=== PATIENT | female | born 1950 | race Caucasian/White ===

== ENCOUNTER 2016-06-11 18:34 | Inpatient (IN) | payer MEDICARE, MEDICAID ==
[2016-06-11 18:37] VITALS: BP 228/100; PULSE 98; RESP 24; TEMP 98.7; O2SAT 97
--- NOTE | 2016-06-11 19:52 | PD ---
Physical Exam Time Seen by Provider: 19:51 Narrative 66yo F c/o bilateral pedal edema x few days. Hx of edema and takes a water pill. Denies fever, vomiting. VSS. Patient seen in triage. Awaiting bed placement. Data Data Last Documented VS Vital Signs Date Time Temp Pulse Resp B/P Pulse Ox O2 Delivery O2 Flow Rate FiO2 06/11/16 18:37 98.7 98 24 228/100 97 Room Air [facility] Supervised Visit with LISY: Karin Huff Jun 11, 2016 19:52
--- NOTE | 2016-06-11 20:48 | PD ---
HPI Chief Complaint: Edema Time Seen by Provider: 20:45 Travel History International Travel<30 days: No Contact w/Intl Traveler<30days: No Traveled to known affect area: No History of Present Illness HPI Patient is a 66-year-old female presents emergency department for evaluation bilateral pedal edema. Patient states she's been having pedal edema to her ankles for the past day and a half. Patient also does endorse some intermittent shortness of breath which preceded [place] She states since the flight today swelling has gotten worse in the right lower leg. She is on some "blood thinner" but she does not know which. Denies any fever denies any cough or congestion. She states this happened to her one time before and was told to shingles. Though she does not have a rash today. PFSH Past Medical History Narrative Medical Hypertension, CVA, Diabetes Cerebrovascular Accident: Yes Past Surgical History Narrative Surgical Hysterectomy Social History Tobacco Use: No Allergies-Medications (Allergen,Severity, Reaction): Coded Allergies: Tramadol (Verified Allergy, Unknown, ITCHING AND SWELLING, 06/11/16) Reported Meds & Prescriptions Reported Meds & Active Scripts Active Reported [Other Unk Meds] [Insulin] Plavix (Clopidogrel Bisulfate) 75 Mg Tab 75 Mg PO DAILY Gabapentin 300 Mg Cap 300 Mg PO TID Metoprolol Tartrate 25 Mg Tab 25 Mg PO BID Hydrochlorothiazide 25 Mg Tab 25 Mg PO BID Review of Systems Except as stated in HPI: all other systems reviewed are Neg Physical Exam Narrative GENERAL: Well-developed well-nourished no apparent distress. SKIN: Focused skin assessment warm/dry. No rash no lesion. HEAD: Atraumatic. Normocephalic. EYES: Pupils equal and round. No scleral icterus. No injection or drainage. ENT: No nasal bleeding or discharge. Mucous membranes pink and moist. NECK: Trachea midline. No JVD. CARDIOVASCULAR: Regular rate and rhythm. No murmur appreciated. RESPIRATORY: No accessory muscle use. Clear to auscultation. Breath sounds equal bilaterally. GASTROINTESTINAL: Abdomen soft, non-tender, nondistended. Hepatic and splenic margins not palpable. MUSCULOSKELETAL: No obvious deformities. No clubbing. No cyanosis. There is 2 + pitting edema to bilateral lower extremities. The left has edema to the foot and ankle and proximally to the mid tibia. The right is more pronounced and is present up into the knee. No cordlike structure felt, Homans sign negative.. NEUROLOGICAL: Awake and alert. No obvious cranial nerve deficits. Motor grossly within normal limits. Normal speech. PSYCHIATRIC: Appropriate mood and affect; insight and judgment normal. Data Data Last Documented VS Vital Signs Date Time Temp Pulse Resp B/P Pulse Ox O2 Delivery O2 Flow Rate FiO2 06/12/16 00:30 98 18 189/88 98 Room Air 06/11/16 18:37 98.7 Orders Electrocardiogram (06/11/16 21:02) B-Type Natriuretic Peptide (06/11/16 21:02) Ckmb (Isoenzyme) Profile (06/11/16 21:02) Complete Blood Count With Diff (06/11/16 21:) Comprehensive Metabolic Panel (06/11/16 21:) Magnesium (Mg) (06/11/16 21:02) Prothrombin Time / Inr (Pt) (06/11/16 21:) Act Partial Throm Time (Ptt) (06/11/16 21:02) Troponin I (06/11/16 21:02) Chest, Single Ap (06/11/16 21:02) Ecg Monitoring (06/11/16 21:02) Bilateral Bp Monitoring (06/11/16 21:) Iv Access Insert/Monitor (06/11/16 21:) Oximetry (06/11/16 21:02) Oxygen Administration (06/11/16 21:02) Sodium Chloride 0.9% Flush (Ns Flush) (06/11/16 21:15) Ct Pulmonary Angiogram (06/11/16 21:02) Us Leg Venous Doppler Bilat (06/11/16 21:02) CKMB (06/11/16 21:22) CKMB% (06/11/16 21:22) Ct Brain W/O Iv Contrast(Rout) (06/11/16 ) Nicardipine Inj (Cardene Inj) (06/11/16 23:15) Potassium Chlor 20 Meq Premix (Kcl 20 Me (06/11/16 23:15) Iohexol 350 Inj (Omnipaque 350 Inj) (06/11/16 23:56) Levofloxacin 750 Mg Premix Inj (Levaquin (06/12/16 00:30) Admit Order (Ed Use Only) (06/12/16 ) Labs Laboratory Tests Test 06/11/16 21:22 White Blood Count 7.4 TH/MM3 Red Blood Count 3.86 MIL/MM3 Hemoglobin 10.2 GM/DL Hematocrit 31.2 % Mean Corpuscular Volume 80.8 FL Mean Corpuscular Hemoglobin 26.4 PG Mean Corpuscular Hemoglobin 32.7 % Concent Red Cell Distribution Width 12.8 % Platelet Count 176 TH/MM3 Mean Platelet Volume 9.4 FL Neutrophils (%) (Auto) 66.7 % Lymphocytes (%) (Auto) 23.2 % Monocytes (%) (Auto) 7.8 % Eosinophils (%) (Auto) 1.9 % Basophils (%) (Auto) 0.4 % Neutrophils # (Auto) 4.9 TH/MM3 Lymphocytes # (Auto) 1.7 TH/MM3 Monocytes # (Auto) 0.6 TH/MM3 Eosinophils # (Auto) 0.1 TH/MM3 Basophils # (Auto) 0.0 TH/MM3 CBC Comment DIFF FINAL Differential Comment Prothrombin Time 10.3 SEC Prothromb Time International 0.9 RATIO Ratio Activated Partial 23.5 SEC Thromboplast Time Sodium Level 139 MEQ/L Potassium Level 2.9 MEQ/L Chloride Level 103 MEQ/L Carbon Dioxide Level 27.6 MEQ/L Anion Gap 8 MEQ/L Blood Urea Nitrogen 17 MG/DL Creatinine 1.22 MG/DL Estimat Glomerular Filtration 44 ML/MIN Rate Random Glucose 341 MG/DL Calcium Level 8.4 MG/DL Magnesium Level 1.7 MG/DL Total Bilirubin 0.4 MG/DL Aspartate Amino Transf 15 U/L (AST/SGOT) Alanine Aminotransferase 16 U/L (ALT/SGPT) Alkaline Phosphatase 128 U/L Total Creatine Kinase 533 U/L Creatine Kinase MB 4.7 NG/ML Creatine Kinase MB % 0.9 % Troponin I 0.06 NG/ML B-Type Natriuretic Peptide 225 PG/ML Total Protein 7.0 GM/DL Albumin 2.7 GM/DL [facility] Medical Decision Making Medical Screen Exam Complete: Yes Emergency Medical Condition: Yes Interpretation(s) EKG shows normal sinus rhythm with normal axis and normal R-wave progression. LDH. Q waves in lead 3 without any other inferior Q waves. No concerning ST T changes. Intervals are within normal limits. This is an abnormal EKG. Differential Diagnosis CHF, ACS, AMI, non-STEMI, hypertensive emergency, DVT, PE. Narrative Course Patient 66-year-old female presents to emergency department for evaluation of shortness of breath and leg swelling. Patient states his been feeling fatigued and short of breath for some time prior to her plane ride. She does have bilateral lower extremity leg swelling which is worse on the right. There are indications for PE as well as DVT studies both of which are negative for thrombosis/embolism. However there is a small pneumonia on CT of the chest per patient is been a symptomatically from it. She will be started on Levaquin. Patient's labs are notable for an elevation in her total CK to 500 as well as an elevation of troponin to 0.06. Given her blood pressure elevated to 220 systolic is indication to start on antihypertensives as is her presents hypertensive emergency. CT head was initially ordered as the patient seems somewhat altered but the patient family arrives and states because Irish is not her first language and she takes second of process it. She does not seem altered to them. Patient was discussed with Dr. Herrera for admission. Diagnosis Primary Impression: Hypertensive emergency Additional Impressions: Elevated troponin Pneumonia Qualified Code: J18.9 - Pneumonia due to infectious organism, unspecified laterality, unspecified part of lung Admitting Information Admitting Physician Requests: Admit Condition: Stable Isidoro Ramos MD Jun 11, 2016 20:48
[2016-06-11 21:04] VITALS: BP 228/106; PULSE 97; RESP 24; O2SAT 98
[2016-06-11] MEDS ORDERED: SODIUM CHLORIDE 0.9% FLUSH 10 ML FLUSH IVF PRN (21:15)
[2016-06-11] MEDS ORDERED: HYDR25TA5 PO (21:32)
[2016-06-11] MEDS ORDERED: METO25TA3 PO (21:32)
[2016-06-11] MEDS ORDERED: GABA300C5 PO (21:32)
[2016-06-11 21:42] LABS: AUTOMATED NEUTROPHIL # 4.9 TH/MM3 (1.8-7.7); BASOPHIL % 0.4 % (0.0-2.0); EOSINOPHIL # 0.1 TH/MM3 (0-0.4); EOSINOPHIL % 1.9 % (0.0-4.0); HEMATOCRIT 31.2 % (35.0-46.0); HEMO FLAGS DIFF FINAL; LYMPH % 23.2 % (9.0-44.0); LYMPHOCYTE # 1.7 TH/MM3 (1.0-4.8); MEAN CELL VOLUME 80.8 FL (80.0-100.0); MEAN CORPUSCULAR HEMOGLOBIN 26.4 PG (27.0-34.0); MEAN CORPUSCULAR HGB CONC 32.7 % (32.0-36.0); MONO % 7.8 % (0.0-8.0); NEUT % 66.7 % (16.0-70.0); PLATELET COUNT 176 TH/MM3 (150-450); RED BLOOD COUNT 3.86 MIL/MM3 (4.00-5.30); RED CELL DISTRIBUTION WIDTH 12.8 % (11.6-17.2); WHITE BLOOD COUNT 7.4 TH/MM3 (4.0-11.0)
--- NOTE | 2016-06-11 21:42 | RADRPT ---
EXAM DATE/TIME: 06/11/2016 21:18 [facility] COMPARISON: No previous studies available for comparison. INDICATIONS : Chest pain. MEDICAL HISTORY : None. SURGICAL HISTORY : None. ENCOUNTER: Initial ACUITY: 1 day PAIN SCORE: 0/10 LOCATION: Bilateral chest FINDINGS: A single AP erect portable view of the chest was obtained and demonstrate streaky perihilar and bibas al are interstitial opacities with no focal consolidation or effusion. The heart size is mildly enlar ged. There are one electrocardiogram leads. The bony thorax is intact. CONCLUSION: Streaky mild perihilar and by basilar interstitial opacities which could indicate pulmonary edema. Yang Flower MD on June 11, 2016 at 21:40 Board Certified Radiologist. This report was verified electronically.
[2016-06-11 21:53] LABS: APTT (PATIENT) 23.5 SEC (24.3-30.1); INTERNATIONAL NORMALIZED RATIO 0.9 RATIO; PROTHROMBIN TIME - PATIENT 10.3 SEC (9.8-11.6)
[2016-06-11 22:03] VITALS: BP 212/94; PULSE 94; RESP 22; O2SAT 98
[2016-06-11] MEDS ORDERED: PLAV75TA29 PO (22:05)
[2016-06-11 22:20] LABS: ALKALINE PHOSPHATASE 128 U/L (45-117); ALT (GPT) 16 U/L (10-53); ANION GAP 8 MEQ/L (5-15); AST (GOT) 15 U/L (15-37); BICARBONATE 27.6 MEQ/L (21.0-32.0); BLOOD UREA NITROGEN 17 MG/DL (7-18); CHLORIDE 103 MEQ/L (98-107); CREATINE KINASE 533 U/L (26-192); GLOMERULAR FILTRATION RATE 44 ML/MIN (>89); MAGNESIUM 1.7 MG/DL (1.5-2.5); SODIUM (NA) 139 MEQ/L (136-145); TOTAL BILIRUBIN ADULT 0.4 MG/DL (0.2-1.0)
--- NOTE | 2016-06-11 22:24 | RADRPT ---
EXAM DATE/TIME: 06/11/2016 21:51 [facility] COMPARISON: No previous studies available for comparison. INDICATIONS : Bilateral leg swelling. MEDICAL HISTORY : Hypertension. Cerebrovascular accident. Anticoagulant therapy, Plavix. Ovarian cancer. Diabetes. SURGICAL HISTORY : Hysterectomy. ENCOUNTER: Initial ACUITY: 2 weeks PAIN SCORE: 8/10 LOCATION: Bilateral legs. TECHNIQUE: Venous ultrasound of the left and right leg was performed from the inguinal ligament to the proximal calf. Real-time, color Doppler and spectral tracing, compression and augmentation techniques were us ed. FINDINGS: RIGHT LEG: There is normal compressibility of the deep venous system from the inguinal region to the proximal ca lf. No echogenic clot is seen in the lumen of the common femoral, femoral, popliteal, and posterior tibial veins. There is a normal response of the venous system to proximal and distal augmentation an d respiration. LEFT LEG: There is normal compressibility of the deep venous system from the inguinal region to the proximal ca lf. No echogenic clot is seen in the lumen of the common femoral, femoral, popliteal, and posterior tibial veins. There is a normal response of the venous system to proximal and distal augmentation an d respiration. CONCLUSION: Unremarkable exam with no evidence of deep venous thrombosis. Yang Flower MD on June 11, 2016 at 22:22 Board Certified Radiologist. This report was verified electronically.
[2016-06-11] MEDS ORDERED: [UNRECOGNIZED DRUG - REMARK] (22:34)
[2016-06-11] MEDS ORDERED: INSULIN (22:34)
--- NOTE | 2016-06-11 22:46 | EKG ---
Date Performed: 06/11/2016 Time Performed: 21:18:21 PTAGE: 66 years EKG: Sinus rhythm LEFT VENTRICULAR HYPERTROPHY AND ST-T CHANGE ABNORMAL ECG NO PREVIOUS TRACING DOCTOR: Ehsan Infante Interpretating Date/Time 06/11/2016 22:45:09
[2016-06-11 22:53] LABS: CKMB 4.7 NG/ML (0.5-3.6)
[2016-06-11 22:57] LABS: POTASSIUM 2.9 MEQ/L (3.5-5.1)
[2016-06-11] MEDS ORDERED: POTASSIUM CHLOR 20 MEQ PREMIX 100 ML IV ONE (23:15)
[2016-06-11] MEDS ORDERED: niCARdipine INJ 25 MG in SODIUM CHLOR 0.9% 250 ML INJ 250 ML IV SCH (23:15)
[2016-06-11 23:45] VITALS: BP 208/108; PULSE 90; RESP 18; O2SAT 98
[2016-06-11] MEDS ORDERED: IOHEXOL 350 MG/ML 10 ML VIAL (for RAD DIAG) IV ONE (23:56)
[2016-06-12] VITALS (25 sets, daily range): BP systolic 140–199; BP diastolic 71–98; PULSE 84–101; RESP 16–18; TEMP 98.2–98.8; O2SAT 95–100
--- NOTE | 2016-06-12 00:04 | RADRPT ---
EXAM DATE/TIME: 06/11/2016 23:51 [facility] COMPARISON: No previous studies available for comparison. INDICATIONS : Altered mental status. RADIATION DOSE: 55.26 CTDIvol (mGy) MEDICAL HISTORY : Diabetes mellitus type 2. Hypertension. Ovarian cancer. SURGICAL HISTORY : None. ENCOUNTER: Initial ACUITY: 1 day PAIN SCALE: 0/10 LOCATION: cranial TECHNIQUE: Multiple contiguous axial images were obtained of the head. Using automated exposure control and adj ustment of the mA and/or kV according to patient size, radiation dose was kept as low as reasonably a chievable to obtain optimal diagnostic quality images. FINDINGS: CEREBRUM: The ventricles are normal for age. No evidence of midline shift, mass lesion, hemorrhage or acute in farction. No extra-axial fluid collections are seen. There is chronic white matter changes bilateral ly. POSTERIOR FOSSA: The cerebellum and brainstem are intact. The 4th ventricle is midline. The cerebellopontine angle i s unremarkable. EXTRACRANIAL: The visualized portion of the orbits is intact. SKULL: The calvaria is intact. No evidence of skull fracture. CONCLUSION: Normal examination for a patient of this age. Santos Collins MD on June 12, 2016 at 0:01 Board Certified Radiologist. This report was verified electronically.
--- NOTE | 2016-06-12 00:06 | RADRPT ---
EXAM DATE/TIME: 06/11/2016 23:55 [facility] COMPARISON: No previous studies available for comparison. INDICATIONS : Short of breath. IV CONTRAST: 70 cc Omnipaque 350 (iohexol) IV RADIATION DOSE: 23.32 CTDIvol (mGy) MEDICAL HISTORY : Diabetes mellitus type 2. Hypertension. Ovarian cancer. SURGICAL HISTORY : None. ENCOUNTER: Initial ACUITY: 1 day PAIN SCALE: 2/10 LOCATION: chest TECHNIQUE: Volumetric scanning of the chest was performed using a pulmonary embolism protocol MIP images were re constructed. Using automated exposure control and adjustment of the mA and/or kV according to patien t size, radiation dose was kept as low as reasonably achievable to obtain optimal diagnostic quality images. FINDINGS: PULMONARY ARTERIES: No filling defects are seen in the pulmonary arteries through the segmental level. LUNGS: Small infiltrate in the peripheral aspect of the left upper lung. There is some scattered interstitia l infiltrates in both lung bases. PLEURAE: There is no pleural thickening or pleural effusion. MEDIASTINUM: There is good visualization of the great vessels of the middle mediastinum. No evidence of mediastin al or hilar adenopathy/mass. Heart size appears to be enlarged. MUSCULOSKELETAL: Within normal limits for patient age. MISCELLANEOUS: The visualized upper abdominal organs demonstrate no acute abnormality. CONCLUSION: 1. No evidence of PE. 2. Mild infiltrate peripheral aspect left upper lung 3. Scattered interstitial infiltrates in both lung bases. 4. Compensated cardiomegaly. Santos Collins MD on June 12, 2016 at 0:03 Board Certified Radiologist. This report was verified electronically.
[2016-06-12] MEDS ORDERED: LEVOFLOXACIN 750 MG PREMIX INJ 150 ML IV ONE (00:30)
[2016-06-12] MEDS ORDERED: NALOXONE HCL 0.4 MG/ML AMP IV PRN (01:15)
[2016-06-12] MEDS ORDERED: SODIUM CHLORIDE 0.9% FLUSH 10 ML FLUSH IV FLUSH PRN (01:15)
[2016-06-12] MEDS ORDERED: POTASSIUM CHLORIDE 20 MEQ CONTROLLED RELEASE TAB PO ONE (01:30)
[2016-06-12] MEDS ORDERED: POTASSIUM CHLOR 20 MEQ PREMIX 100 ML IV ONE (01:30)
[2016-06-12] MEDS: hydrALAZINE HCL 20 MG/ML VIAL IV PUSH PRN ×2 (02:43→07:41)
--- NOTE | 2016-06-12 04:02 | HHI.HP ---
HPI Service [facility] Primary Care Physician Non-Staff Admission Diagnosis Hypertensive emergency, Elevated [place] Diagnoses: Chief Complaint: Bilateral pedal edema and pain Travel History International Travel<30 Days: No Contact w/Intl Traveler <30 Da: No Traveled to Known Affected Are: No History of Present Illness This a 66-year-old female patient with past medical history which includes hypertension, CVA 2, diabetes mellitus, ovarian cancer treated in 1999 with radiation and hysterectomy. Patient is here on vacation from [place] she traveled by plane. Patient states that she's been having bilateral pedal edema for the past 2 days. Patient also reports right ankle pain. Denies trauma. Patient describes the right ankle pain as a moderate ache worse with movement and better with rest. Patient also endorses mild shortness of breath. Patient denies chest pain nausea vomiting diarrhea constipation fevers or chills. In emergency department patient was noted to have blood pressure 228/100 upon arrival. Patient reports mild headache. Patient denies changes in vision. Patient reports she's been compliant with her antihypertensive medication. Patient also noted to have mildly elevated troponin of 0.06, with BNP of 225. Patient denies history of congestive heart failure Review of Systems Except as stated in HPI: all other systems reviewed are Neg Past Family Social History Past Medical History hypertension, CVA 2, diabetes mellitus, ovarian cancer treated in 1999 with radiation and hysterectomy Past Surgical History Hysterectomy with ovaries removed cataract surgery Reported Medications [Other Unk Meds] [Insulin] Plavix (Clopidogrel Bisulfate) 75 Mg Tab 75 Mg PO DAILY Gabapentin 300 Mg Cap 300 Mg PO TID Metoprolol Tartrate 25 Mg Tab 25 Mg PO BID Hydrochlorothiazide 25 Mg Tab 25 Mg PO BID Allergies: Coded Allergies: Tramadol (Verified Allergy, Unknown, ITCHING AND SWELLING, 06/11/16) Active Ordered Medications Current Medications Medications (Trade) Dose Ordered Sig/Anamika Route Start Time Stop Time Status Last Admin (NS Flush) 2 ml UNSCH PRN IV FLUSH 06/12/16 01:15 (NS Flush) 2 ml BID IV FLUSH 06/12/16 09:00 (Narcan Inj) 0.4 mg UNSCH PRN IV 06/12/16 01:15 (Apresoline Inj) 10 mg Q30M PRN IV PUSH 06/12/16 01:30 06/12/16 02:43 (Heparin Inj) 5,000 units Q12HR SQ 06/12/16 09:00 (Plavix) 75 mg DAILY PO 06/12/16 09:00 (Neurontin) 300 mg TID PO 06/12/16 09:00 (Hydrodiuril) 25 mg BID PO 06/12/16 09:00 (Lopressor) 25 mg BID PO 06/12/16 09:00 Family History mother and father both had liver cancer Social History Patient is here on vacation from [place] ETOH or illicit drug use quit smoking 1999 Physical Exam Vital Signs Vital Signs Date Time Temp Pulse Resp B/P Pulse Ox O2 Delivery O2 Flow Rate FiO2 06/12/16 03:20 98 18 161/77 100 Room Air 06/12/16 02:30 93 18 190/87 100 Room Air 06/12/16 01:45 96 18 160/76 98 Room Air 06/12/16 01:30 95 16 166/75 96 Room Air 06/12/16 00:30 98 18 189/88 98 Room Air 06/12/16 00:18 101 18 199/91 98 Room Air 06/11/16 23:45 90 18 208/108 98 Room Air 06/11/16 22:03 94 22 212/94 98 Room Air 06/11/16 21:18 99 Room Air 06/11/16 21:04 97 24 228/106 98 Room Air 06/11/16 20:52 95 06/11/16 18:37 98.7 98 24 228/100 97 Room Air Physical Exam GENERAL: This is n obese 66-year-old female patient appears uncomfortable HEAD: Atraumatic. Normocephalic. No temporal or scalp tenderness. EYES: Extraocular motions intact. No scleral icterus. No injection or drainage. CARDIOVASCULAR: Regular rate and rhythm without murmurs, gallops, or rubs. RESPIRATORY: Clear to auscultation. Breath sounds equal bilaterally. No wheezes , rales, or rhonchi. GASTROINTESTINAL: Abdomen soft, non-tender, nondistended. No guarding. MUSCULOSKELETAL: Bilateral trace edema. NEUROLOGICAL: Awake and alert. No focal deficits appreciated. Motor and sensory grossly within normal limits. Five out of 5 muscle strength in all muscle groups. Normal speech. Laboratory Laboratory Tests Test 06/11/16 21:22 White Blood Count 7.4 Red Blood Count 3.86 Hemoglobin 10.2 Hematocrit 31.2 Mean Corpuscular Volume 80.8 Mean Corpuscular Hemoglobin 26.4 Mean Corpuscular Hemoglobin 32.7 Concent Red Cell Distribution Width 12.8 Platelet Count 176 Mean Platelet Volume 9.4 Neutrophils (%) (Auto) 66.7 Lymphocytes (%) (Auto) 23.2 Monocytes (%) (Auto) 7.8 Eosinophils (%) (Auto) 1.9 Basophils (%) (Auto) 0.4 Neutrophils # (Auto) 4.9 Lymphocytes # (Auto) 1.7 Monocytes # (Auto) 0.6 Eosinophils # (Auto) 0.1 Basophils # (Auto) 0.0 CBC Comment DIFF FINAL Differential Comment Prothrombin Time 10.3 Prothromb Time International 0.9 Ratio Activated Partial 23.5 Thromboplast Time Sodium Level 139 Potassium Level 2.9 Chloride Level 103 Carbon Dioxide Level 27.6 Anion Gap 8 Blood Urea Nitrogen 17 Creatinine 1.22 Estimat Glomerular Filtration 44 Rate Random Glucose 341 Calcium Level 8.4 Magnesium Level 1.7 Total Bilirubin 0.4 Aspartate Amino Transf 15 (AST/SGOT) Alanine Aminotransferase 16 (ALT/SGPT) Alkaline Phosphatase 128 Total Creatine Kinase 533 Creatine Kinase MB 4.7 Creatine Kinase MB % 0.9 Troponin I 0.06 B-Type Natriuretic Peptide 225 Total Protein 7.0 Albumin 2.7 Result Diagram: 06/11/16212106/11/162121 Imaging Last Impressions Lower Extremity Ultrasound 06/11/162101 Signed Impressions: Service Date/Time: May 21:51 - CONCLUSION: Unremarkable exam with no evidence of deep venous thrombosis. Yang Flower MD Chest X-Ray 06/11/162101 Signed Impressions: Service Date/Time: May 21:18 - CONCLUSION: Streaky mild perihilar and by basilar interstitial opacities which could indicate pulmonary edema. Yang Flower MD CT Angiography 06/11/162101 Signed Impressions: Service Date/Time: May 23:55 - CONCLUSION: 1. No evidence of PE. 2. Mild infiltrate peripheral aspect left upper lung 3. Scattered interstitial infiltrates in both lung bases. 4. Compensated cardiomegaly. Santos Collins MD Head CT 06/11/16 0000 Signed Impressions: Service Date/Time: May 23:51 - CONCLUSION: Normal examination for a patient of this age. Santos Collins MD Assessment and Plan Problem List: (1) Hypertensive emergency ICD Code: I16.1 Status: Resolved (2) Elevated troponin ICD Code: R74.8 Status: Acute (3) Right ankle pain ICD Code: M25.571 Status: Resolved Assessment and Plan This a 66-year-old female patient with past medical history which includes hypertension, CVA 2, diabetes mellitus, ovarian cancer treated in 1999 with radiation and hysterectomy. Patient is here on vacation from [place] she traveled by plane. Patient states that she's been having bilateral pedal edema for the past 2 days. Associated right ankle pain. Also reports mild shortness of breath. In emergency department patient was noted to have blood pressure 228/100 upon arrival. Patient reports mild headache. Hypertensive urgency- patient on Cardene drip Close monitoring of blood pressure Neuro checks Continue home metoprolol and hydrochlorothiazide CT of the head reviewed and appears normal for patient this age Elevated troponin Serial troponin, serial EKG Bilateral lower extremity edema Ultrasound bilateral extremities shows no evidence of DVT Right ankle pain X-ray right ankle pending Hypokalemia Replaced recheck in a.m. Possible pulmonary edema Chest x-ray reviewed by myself as well as Dr. Herrera reveals streaky mild perihilar and bibasilar interstitial opacities which could indicate pulmonary edema. Patient with potassium of 2.9, and clear lung sounds, in no acute distress- will hold off on Lasix at this time- patient shows evidence of decompensation consider Lasix IV Diabetes mellitus accuchecks at bedtime with sliding scale Coverage DVT prophylaxis with Lovenox Discussed with here provider, nursing and patient Written by Constance Rodriguez, acting as scribe for Dr. Nguyen on 06/12/16 at 05: 37. This note was transcribed by scribe [ Constance Rodriguez]. I, Dr. Homer Nguyen personally performed the history, physical exam, and medical decision making; and confirmed the accuracy of the information in the transcribed note. Authenticated by Dr. Homer Nguyen on 06/12/16 at 05:37. Physician Certification 2 Midnight Certification Type: Admission for Inpatient Services Order for Inpatient Services The services are ordered in accordance with Medicare regulations or non- Medicare payer requirements, as applicable. In the case of services not specified as inpatient-only, they are appropriately provided as inpatient services in accordance with the 2-midnight benchmark. Estimated LOS (days): 3 days is the estimated time the patient will need to remain in the hospital, assuming treatment plan goals are met and no additional complications. Post-Hospital Plan: Home Constance Rodriguez Jun 12, 2016 04:02 Hoemr Nguyen MD June 29, 2016 06:16
[2016-06-12] MEDS ORDERED: ONDANSETRON HCL 4 MG/2 ML VIAL ONE (04:33)
[2016-06-12 05:08] LABS: CKMB 4.7 NG/ML (0.5-3.6)
[2016-06-12] MEDS ORDERED: GLUCAGON 1 MG/ML VIAL OTHER PRN (05:45)
[2016-06-12] MEDS ORDERED: DEXTROSE 50% IN WATER 50 ML VIAL(D50) IV PUSH PRN (05:45)
--- NOTE | 2016-06-12 06:20 | RADRPT ---
EXAM DATE/TIME: 06/12/2016 05:44 [facility] COMPARISON: No previous studies available for comparison. INDICATIONS : Right ankle pain and swelling. MEDICAL HISTORY : None. SURGICAL HISTORY : None. ENCOUNTER: Initial ACUITY: 1 day PAIN SCORE: 0/10 LOCATION: Right ankle. FINDINGS: Three view exam was performed of the right ankle. The bony structures are in normal alignment. No e vidence of fracture, dislocation. There is soft tissue swelling around the ankle. The ankle mortise is intact. No radiopaque foreign bodies are seen. Bony mineralization is normal. There is a heel sp ur on the plantar surface of the calcaneus. CONCLUSION: 1. Soft tissue swelling. 2. No acute fracture or joint dislocation. 3. Heel spur. Santos Collins MD on June 12, 2016 at 6:18 Board Certified Radiologist. This report was verified electronically.
[2016-06-12] MEDS: INSULIN ASPART SUPPLEMENTAL SCALE SQ SCH ×4 (08:11→21:33)
[2016-06-12] MEDS: CLOPIDOGREL 75 MG TAB PO SCH (08:37)
[2016-06-12] MEDS: HYDROCHLOROTHIAZIDE 25 MG TAB PO SCH ×2 (08:37→21:21)
[2016-06-12] MEDS: METOPROLOL TARTRATE 25 MG TAB PO SCH ×2 (08:37→21:21)
[2016-06-12] MEDS: GABAPENTIN 300 MG CAP PO SCH ×3 (08:37→18:07)
[2016-06-12] MEDS: HEPARIN SODIUM - SQ 10,000 UNITS/ML VIAL SQ SCH ×2 (08:37→21:22)
[2016-06-12] MEDS: SODIUM CHLORIDE 0.9% FLUSH 10 ML FLUSH IV FLUSH SCH ×2 (08:39→21:21)
--- NOTE | 2016-06-12 09:39 | EKG ---
Date Performed: 06/12/2016 Time Performed: 04:12:15 PTAGE: 66 years EKG: Sinus rhythm LEFT VENTRICULAR HYPERTROPHY AND ST-T CHANGE ABNORMAL ECG PREVIOUS TRACING : 06/11/2016 21.18 No significant change from previous tracing noted. DOCTOR: Ehsan Infante Interpretating Date/Time 06/12/2016 09:37:43
--- NOTE | 2016-06-12 10:02 | HHI.PR ---
Subjective Remarks Patient seen and examined. On further history, she reports she has been having increasing bilateral lower extremity edema for the past 3 weeks. She reports her shortness of breath. He started about a week ago and has been getting worse. She first noticed it when she was walking in the store. On my evaluation the patient became short of breath just from moving to the bed from the bedside commode. Regarding hypertension, she states she is normally compliant with her medication but did not take them yesterday during her travels. She believes the stress of traveling made her hypertension worse. She is hoping to get better and go home soon. Objective Vitals Vital Signs Date Time Temp Pulse Resp B/P Pulse Ox O2 Delivery O2 Flow Rate FiO2 06/12/16 08:22 84 18 150/71 97 Room Air 06/12/16 07:19 97 18 96 Room Air 06/12/16 07:19 97 18 182/87 96 Room Air 06/12/16 06:00 98 16 166/78 95 Room Air 06/12/16 04:30 97 16 159/83 99 Room Air 06/12/16 03:20 98 18 161/77 100 Room Air 06/12/16 02:30 93 18 190/87 100 Room Air 06/12/16 01:45 96 18 160/76 98 Room Air 06/12/16 01:30 95 16 166/75 96 Room Air 06/12/16 00:30 98 18 189/88 98 Room Air 06/12/16 00:18 101 18 199/91 98 Room Air 06/11/16 23:45 90 18 208/108 98 Room Air 06/11/16 22:03 94 22 212/94 98 Room Air 06/11/16 21:18 99 Room Air 06/11/16 21:04 97 24 228/106 98 Room Air 06/11/16 20:52 95 06/11/16 18:37 98.7 98 24 228/100 97 Room Air Result Diagram: 06/11/16212106/11/[id number] Imaging Last Impressions Ankle X-Ray 06/12/16 0000 Signed Impressions: Service Date/Time: Sunday, June 12, 2016 05:44 - CONCLUSION: 1. Soft tissue swelling. 2. No acute fracture or joint dislocation. 3. Heel spur. Santos Collins MD Lower Extremity Ultrasound 06/11/162101 Signed Impressions: Service Date/Time: May 21:51 - CONCLUSION: Unremarkable exam with no evidence of deep venous thrombosis. Yang Flower MD Chest X-Ray 06/11/162101 Signed Impressions: Service Date/Time: May 21:18 - CONCLUSION: Streaky mild perihilar and by basilar interstitial opacities which could indicate pulmonary edema. Yang Flower MD CT Angiography 06/11/162101 Signed Impressions: Service Date/Time: May 23:55 - CONCLUSION: 1. No evidence of PE. 2. Mild infiltrate peripheral aspect left upper lung 3. Scattered interstitial infiltrates in both lung bases. 4. Compensated cardiomegaly. Santos Collins MD Head CT 06/11/16 0000 Signed Impressions: Service Date/Time: May 23:51 - CONCLUSION: Normal examination for a patient of this age. Santos Collins MD Objective Remarks GENERAL: This is a well-nourished, well-developed patient, in no apparent distress. CARDIOVASCULAR: Normal rate and regular rhythm without murmurs, gallops, or rubs. RESPIRATORY: Good respiratory efforts. Breath sounds equal and clear to auscultation bilaterally except for some faint crackles at the right base. GASTROINTESTINAL: Abdomen soft, non-tender, non-distended. Normal active bowel sounds MUSCULOSKELETAL: 1+ edema bilateral lower extremities. NEURO: Alert & Oriented x4 to person, place, time, situation. Moves all ext x4 PSYCH: Appropriate mood and affect. A/P Problem List: (1) Hypertensive emergency ICD Code: I16.1 Status: Acute (2) Elevated troponin ICD Code: R74.8 Status: Acute (3) Right ankle pain ICD Code: M25.571 Status: Acute Assessment and Plan 66-year-old female patient with past medical history which includes hypertension , CVA 2, diabetes mellitus, ovarian cancer treated in 1999 with radiation and hysterectomy. Patient is here on vacation from [place] she traveled by plane. Patient presented with bilateral lower extremity edema, noted to be in hypertensive urgency with blood pressure of 228/100 on arrival. She did not take her antihypertensives on the day of admission. Hypertensive emergency- patient was started on a on Cardene drip. Wean off as tolerated Continue home metoprolol and hydrochlorothiazide CT of the head reviewed and appears normal for patient this age Shortness of breath, Possible pulmonary edema - I personally reviewed the chest x-ray imaging. There are history of worsening lower extremity edema and shortness of breath is concerning for heart failure in this patient with uncontrolled hypertension. - Obtain 2-D echo. Repeat BMP, if potassium levels adequate, plan to give a dose of 20 mg IV Lasix and monitor her response. Elevated troponin Serial troponin so far indeterminate likely related to hypertensive crisis, follow trends and serial EKG. Patient reports she had a normal heart catheterization last year. However I note that she is on Plavix. She is not sure why. Acute kidney injury: Likely related to hypertensive emergency - Follow-up labs. Bilateral lower extremity edema Ultrasound bilateral extremities shows no evidence of DVT Right ankle pain X-ray right ankle does not reveal any fractures. Hypokalemia Replaced, repeat BMP pending Diabetes mellitus: Sliding scale insulin with Accu-Cheks. Obtain hemoglobin A1c. GI prophylaxis: Stool softener PRN constipation. DVT PPx: Heparin Howard Calderón MD Jun 12, 2016 10:02
[2016-06-12 11:50] LABS: BICARBONATE 28.4 MEQ/L (21.0-32.0); POTASSIUM 3.2 MEQ/L (3.5-5.1)
[2016-06-12 12:05] LABS: HEMOGLOBIN A1b 2.3 %; HEMOGLOBIN Ao 79.6 %; HEMOGLOBIN LA1C 2.9 %
[2016-06-12 12:30] LABS: CKMB 4.3 NG/ML (0.5-3.6)
--- NOTE | 2016-06-12 15:10 | EC ---
Study Study Date:06/12/2016 STUDY CONCLUSIONS SUMMARY - Procedure narrative: Transthoracic echocardiography. Image quality was poor. Scanning was performed from the parasternal, apical, and subcostal acoustic windows. - Left ventricle: The cavity size was normal. Wall thickness was normal. Systolic function was normal. The estimated ejection fraction was in the range of 55% to 60%. Although no diagnostic regional wall motion abnormality was identified, this possibility cannot be completely excluded on the basis of this study. - Aortic valve: Poorly visualized. If LV function is below 40, please consider prescribing an ACEI or ARB or document rationale for non-use. PROCEDURE DATA STUDY STATUS: Elective. Procedure: Transthoracic echocardiography. Image quality was poor. Scanning was performed from the parasternal, apical, and subcostal acoustic windows. Study completion: The patient tolerated the procedure well. Transthoracic echocardiography. M-mode, complete 2D, complete spectral Doppler, and color Doppler. Patient status: Inpatient. CARDIAC ANATOMY LEFT VENTRICLE: The cavity size was normal. Wall thickness was normal. Systolic function was normal. The estimated ejection fraction was in the range of 55% to 60%. Although no diagnostic regional wall motion abnormality was identified, this possibility cannot be completely excluded on the basis of this study. AORTIC VALVE: Poorly visualized. Doppler: Transvalvular velocity was within the normal range. There was no stenosis. No regurgitation. Valve area: 1.64cm^2 (Vmax). Peak gradient: 13mm Hg (S). AORTA: Aortic root: The aortic root was normal in size. MITRAL VALVE: Structurally normal valve. Doppler: Transvalvular velocity was within the normal range. There was no evidence for stenosis. No regurgitation. Peak gradient: 4mm Hg (D). LEFT ATRIUM: The atrium was normal in size. RIGHT VENTRICLE: The cavity size was normal. Wall thickness was normal. PULMONIC VALVE: Doppler: Transvalvular velocity was within the normal range. There was no evidence for stenosis. No regurgitation. TRICUSPID VALVE: Structurally normal valve. Doppler: Transvalvular velocity was within the normal range. No regurgitation. PULMONARY ARTERY: The main pulmonary artery was normal-sized. Systolic pressure was within the normal range. RIGHT ATRIUM: The atrium was normal in size. PERICARDIUM: There was no pericardial effusion. SYSTEMIC VEINS: Inferior vena cava: The vessel was normal in size. BASIC MEASUREMENTS ADULT NORMAL Left ventricle LV internal dimension, ED, chordal level, 47.5 mm 43-52 PLAX LV internal dimension, ES, chordal level, 35.3 mm 23-38 PLAX Fractional shortening, chordal level, PLAX *26 % >29 LV posterior wall thickness, ED 7.56 mm IVS/LVPW ratio, ED 1.07 <1.3 Ventricular septum Septal thickness, ED 8.11 mm Aortic valve Leaflet separation 16 mm 15-26 BASIC MEASUREMENTS ADULT NORMAL Aortic valve Leaflet separation 16 mm 15-26 Aorta Root diameter, ED 22 mm 20-37 Left atrium Anterior-posterior dimension, ES 30 mm 19-40 LA/aortic root ratio 1.36 DOPPLER MEASUREMENTS ADULT NORMAL Aortic valve Peak velocity, S 178 cm/s Peak gradient, S 13 mm Hg Valve area, Vmax 1.64 cm^2 Regurgitant velocity, ED 287 cm/s Regurgitant deceleration 1500 cm/s^2 Regurgitant pressure half-time 761 ms Regurgitant gradient, ED 33 mm Hg Mitral valve Peak E-wave velocity 99.7 cm/s Peak A-wave velocity 124 cm/s Deceleration time *129 ms 150-230 Peak gradient, D 4 mm Hg Peak E/A ratio 0.8 Pulmonic valve Peak velocity, S 97.7 cm/s LEGEND: Mean values are shown as u=mean value. Asterisk (*) murcia values outside specified normal range. Prepared and signed by Ehsan Infante [id number]
[2016-06-13] VITALS (15 sets, daily range): BP systolic 152–160; BP diastolic 70–87; PULSE 79–92; RESP 18; TEMP 98–98.7; O2SAT 97–99
[2016-06-13] MEDS: INSULIN ASPART SUPPLEMENTAL SCALE SQ SCH ×2 (05:53→12:28)
[2016-06-13 06:55] LABS: HEMATOCRIT 28.5 % (35.0-46.0); MEAN CORPUSCULAR HEMOGLOBIN 26.7 PG (27.0-34.0); MEAN CORPUSCULAR HGB CONC 33.3 % (32.0-36.0); PLATELET COUNT 177 TH/MM3 (150-450); RED BLOOD COUNT 3.56 MIL/MM3 (4.00-5.30); REVIEW FLAG FINAL; WHITE BLOOD COUNT 5.9 TH/MM3 (4.0-11.0)
[2016-06-13 07:22] LABS: BICARBONATE 27.3 MEQ/L (21.0-32.0)
[2016-06-13 07:27] LABS: POTASSIUM 2.9 MEQ/L (3.5-5.1)
[2016-06-13] MEDS ORDERED: POTASSIUM CHLORIDE 10 MEQ CONTROLLED RELEASE TAB PO ONE (08:00)
[2016-06-13] MEDS: HYDROCHLOROTHIAZIDE 25 MG TAB PO SCH (08:35)
[2016-06-13] MEDS: SODIUM CHLORIDE 0.9% FLUSH 10 ML FLUSH IV FLUSH SCH (08:35)
[2016-06-13] MEDS: HEPARIN SODIUM - SQ 10,000 UNITS/ML VIAL SQ SCH (08:35)
[2016-06-13] MEDS: CLOPIDOGREL 75 MG TAB PO SCH (08:35)
[2016-06-13] MEDS: GABAPENTIN 300 MG CAP PO SCH ×2 (08:35→12:28)
--- NOTE | 2016-06-13 08:35 | HHI.PR ---
Subjective Remarks Follow-up Hypertensive emergency 06/13/16-patient seen and examined, denies any chest pain or shortness of breath. Cardene drip weaned off and patient currently on by mouth antihypertensive medications however BP slightly elevated. Patient states she is on long-acting basal insulin 26 units twice a day. Otherwise No acute event overnight Objective Vitals Vital Signs Date Time Temp Pulse Resp B/P Pulse Ox O2 Delivery O2 Flow Rate FiO2 06/13/16 07:00 82 06/13/16 06:00 85 06/13/16 05:00 87 06/13/16 04:00 88 06/13/16 04:00 Room Air 06/13/16 04:00 98.0 88 18 152/70 97 06/13/16 03:00 86 06/13/16 02:00 88 06/13/16 01:00 92 06/13/16 00:00 98.4 90 18 153/75 97 06/13/16 00:00 90 06/13/16 00:00 Room Air 06/12/16 23:00 90 06/12/16 22:00 98 06/12/16 21:00 92 06/12/16 20:00 97 06/12/16 20:00 Room Air 06/12/16 20:00 98.2 97 18 168/89 98 06/12/16 18:00 92 06/12/16 17:02 96 06/12/16 16:00 98 06/12/16 15:39 98.8 100 18 176/98 100 06/12/16 15:00 99 06/12/16 14:00 94 06/12/16 13:00 96 06/12/16 12:00 91 06/12/16 11:15 98.6 97 18 140/78 97 06/12/16 11:00 91 06/12/16 09:41 98.6 99 18 146/76 98 I/O 06/12/16 06/12/16 06/12/16 06/13/16 06/13/16 06/13/16 07:00 15:00 23:00 07:00 15:00 23:00 Intake Total 480 ml 482 ml Output Total 800 ml Balance 480 ml -318 ml Intake Oral 480 ml 480 ml IV Total 2 ml Output Urine Total 800 ml # Voids 1 2 # Bowel Movements 0 Result Diagram: 06/13/16 0605 06/13/16 0605 Imaging Last Impressions Ankle X-Ray 06/12/16 0000 Signed Impressions: Service Date/Time: Sunday, June 12, 2016 05:44 - CONCLUSION: 1. Soft tissue swelling. 2. No acute fracture or joint dislocation. 3. Heel spur. Santos Collins MD Lower Extremity Ultrasound 06/11/162101 Signed Impressions: Service Date/Time: May 21:51 - CONCLUSION: Unremarkable exam with no evidence of deep venous thrombosis. Yang Flower MD Chest X-Ray 06/11/162101 Signed Impressions: Service Date/Time: May 21:18 - CONCLUSION: Streaky mild perihilar and by basilar interstitial opacities which could indicate pulmonary edema. Yang Folwer MD CT Angiography 06/11/162101 Signed Impressions: Service Date/Time: May 23:55 - CONCLUSION: 1. No evidence of PE. 2. Mild infiltrate peripheral aspect left upper lung 3. Scattered interstitial infiltrates in both lung bases. 4. Compensated cardiomegaly. Santos Collins MD Head CT 06/11/16 0000 Signed Impressions: Service Date/Time: May 23:51 - CONCLUSION: Normal examination for a patient of this age. Santos Collins MD Objective Remarks GENERAL: NAD SKIN: Warm and dry. HEAD: Normocephalic. EYES: No scleral icterus. No injection or drainage. NECK: Supple, trachea midline. No JVD or lymphadenopathy. CARDIOVASCULAR: Regular rate and rhythm with II/ LACY RESPIRATORY: Breath sounds equal bilaterally. No accessory muscle use. GASTROINTESTINAL: Abdomen soft, non-tender, nondistended. MUSCULOSKELETAL: No cyanosis, or edema. BACK: Nontender without obvious deformity. No CVA tenderness. Procedures none A/P Problem List: (1) Hypertensive emergency ICD Code: I16.1 Status: Resolved (2) Elevated troponin ICD Code: R74.8 Status: Acute (3) Right ankle pain ICD Code: M25.571 Status: Resolved (4) Cardiomyopathy due to hypertension ICD Code: I11.9 Status: Chronic (5) Acute renal failure ICD Code: N17.9 Status: Resolved (6) Diabetes mellitus, type 2 ICD Code: E11.9 Status: Chronic (7) Benign hypertension ICD Code: I10 Status: Chronic (8) Pulmonary edema ICD Code: J81.1 Status: Resolved Assessment and Plan 66-year-old female with Hypertensive emergency- resolved status post Cardene drip. Currently on metoprolol and hydrochlorothiazide CT of the head reviewed and appears normal for patient this age Benign labile hypertension: Increase Lopressor to 50 mg by mouth twice a day and continue hydrochlorothiazide Pulmonary edema: Status post 20 mg IV Lasix 1 06/12/16 significant improvement of symptoms. 2-D echo with EF 55-60% with normal systolic function Cardiomyopathy due to hypertension: Elevated cardiac enzymes likely related to hypertensive crisis. 2-D echo with EF 55-60% with normal systolic function Acute kidney injury: Likely related to hypertensive emergency; however now proving renal indices Bilateral lower extremity edema-resolved and bilateral Doppler negative for DVT Right ankle pain X-ray right ankle does not reveal any fractures. Hypokalemia: Will give 60 mEq of potassium 1 and will start patient on potassium supplement daily as she is currently on hydrochlorothiazide Diabetes mellitus: Sliding scale insulin with Accu-Cheks. Resume Lantus 6 units twice a day, patient will need follow-up with endocrinology when she returned to [place]. A1c 9.1 . DVT PPx: Heparin Discharge Planning Discharge home Jose E George MD Jun 13, 2016 08:35 Diabetes mellitus: Sliding scale insulin with Accu-Cheks. Obtain hemoglobin A1c. GI prophylaxis: Stool softener PRN constipation. DVT PPx: Heparin Jose E George MD Jun 13, 2016 08:35
[2016-06-13] MEDS ORDERED: METO-309 PO (08:42)
[2016-06-13] MEDS ORDERED: POTA-163 PO (08:42)
--- NOTE | 2016-06-13 08:47 | HHI.DS ---
Discharge Summary Admission Date Jun 12, 2016 at 01:16 Discharge Date: Jun 13, 2016 Admitting Diagnosis Hypertensive emergency, Elevated TN (1) Hypertensive emergency ICD Code: I16.1 (2) Elevated troponin ICD Code: R74.8 (3) Right ankle pain ICD Code: M25.571 (4) Cardiomyopathy due to hypertension ICD Code: I11.9 (5) Acute renal failure ICD Code: N17.9 (6) Diabetes mellitus, type 2 ICD Code: E11.9 (7) Benign hypertension ICD Code: I10 (8) Pulmonary edema ICD Code: J81.1 Procedures none Brief History - From Admission This a 66-year-old female patient with past medical history which includes hypertension, CVA 2, diabetes mellitus, ovarian cancer treated in 1999 with radiation and hysterectomy. Patient is here on vacation from [place] she traveled by plane. Patient states that she's been having bilateral pedal edema for the past 2 days. Patient also reports right ankle pain. Denies trauma. Patient describes the right ankle pain as a moderate ache worse with movement and better with rest. Patient also endorses mild shortness of breath. Patient denies chest pain nausea vomiting diarrhea constipation fevers or chills. In emergency department patient was noted to have blood pressure 228/100 upon arrival. Patient reports mild headache. Patient denies changes in vision. Patient reports she's been compliant with her antihypertensive medication. Patient also noted to have mildly elevated troponin of 0.06, with BNP of 225. Patient denies history of congestive heart failure CBC/BMP: 06/13/16 0605 06/13/16 0605 Significant Findings Laboratory Tests Test 06/11/16 06/12/16 06/12/16 06/13/16 21:22 04:00 10:50 06:05 Red Blood Count 3.86 MIL/MM3 3.56 MIL/MM3 (4.00-5.30) (4.00-5.30) Hemoglobin 10.2 GM/DL 9.5 GM/DL (11.6-15.3) (11.6-15.3) Hematocrit 31.2 % 28.5 % (35.0-46.0) (35.0-46.0) Mean Corpuscular Hemoglobin 26.4 PG 26.7 PG (27.0-34.0) (27.0-34.0) Activated Partial 23.5 SEC Thromboplast Time (24.3-30.1) Potassium Level 2.9 MEQ/L 3.2 MEQ/L 2.9 MEQ/L (3.5-5.1) (3.5-5.1) (3.5-5.1) Creatinine 1.22 MG/DL 1.05 MG/DL 1.03 MG/DL (0.50-1.00) (0.50-1.00) (0.50-1.00) Estimat Glomerular Filtration 44 ML/MIN (>89) 52 ML/MIN (>89) 53 ML/MIN (>89) Rate Random Glucose 341 MG/DL 239 MG/DL 184 MG/DL (74-106) (74-106) (74-106) Calcium Level 8.4 MG/DL 8.1 MG/DL 8.1 MG/DL (8.5-10.1) (8.5-10.1) (8.5-10.1) Alkaline Phosphatase 128 U/L (45-117) Total Creatine Kinase 533 U/L 471 U/L 440 U/L (26-192) (26-192) (26-192) Creatine Kinase MB 4.7 NG/ML 4.7 NG/ML 4.3 NG/ML (0.5-3.6) (0.5-3.6) (0.5-3.6) Troponin I 0.06 NG/ML 0.08 NG/ML 0.08 NG/ML (0.02-0.05) (0.02-0.05) (0.02-0.05) B-Type Natriuretic Peptide 225 PG/ML (0-100) Albumin 2.7 GM/DL (3.4-5.0) Hemoglobin A1c 9.1 % (4.3-6.0) Imaging Last Impressions Ankle X-Ray 06/12/16 0000 Signed Impressions: Service Date/Time: Sunday, June 12, 2016 05:44 - CONCLUSION: 1. Soft tissue swelling. 2. No acute fracture or joint dislocation. 3. Heel spur. Santos Collins MD Lower Extremity Ultrasound 06/11/162101 Signed Impressions: Service Date/Time: May 21:51 - CONCLUSION: Unremarkable exam with no evidence of deep venous thrombosis. Yang Flower MD Chest X-Ray 06/11/162101 Signed Impressions: Service Date/Time: May 21:18 - CONCLUSION: Streaky mild perihilar and by basilar interstitial opacities which could indicate pulmonary edema. Yang Flower MD CT Angiography 06/11/162101 Signed Impressions: Service Date/Time: May 23:55 - CONCLUSION: 1. No evidence of PE. 2. Mild infiltrate peripheral aspect left upper lung 3. Scattered interstitial infiltrates in both lung bases. 4. Compensated cardiomegaly. Santos Collins MD Head CT 06/11/16 0000 Signed Impressions: Service Date/Time: May 23:51 - CONCLUSION: Normal examination for a patient of this age. Santos Collins MD PE at Discharge GENERAL: NAD SKIN: Warm and dry. HEAD: Normocephalic. EYES: No scleral icterus. No injection or drainage. NECK: Supple, trachea midline. No JVD or lymphadenopathy. CARDIOVASCULAR: Regular rate and rhythm with II/ LACY RESPIRATORY: Breath sounds equal bilaterally. No accessory muscle use. GASTROINTESTINAL: Abdomen soft, non-tender, nondistended. MUSCULOSKELETAL: No cyanosis, or edema. BACK: Nontender without obvious deformity. No CVA tenderness. Hospital Course Patient admitted secondary to hypertensive emergency for which she was started on Cardene drip to ca ACS was ruled out per protocol with serial cardiac enzyme and EKG. He was subsequently switched to by mouth oral antihypertensive medications over Lopressor was increased to 50 mg by mouth twice a day secondary to labile blood pressure and her hydrochlorothiazide was continued. Secondary to bilateral lower extremity swelling DVT was ruled out with a negative Doppler. She was placed on the sliding scale insulin with fingerstick blood glucose monitoring. All electrolyte abnormalities were corrected accordingly including hypokalemia. DVT and GI prophylaxis were provided. Pt Condition on Discharge: Stable Discharge Disposition: Discharge Home Discharge Time: <= 30 minutes Discharge Instructions DIET: Follow Instructions for: Diabetic Diet Activities you can perform: Regular-No Restrictions Follow up Referrals: PCP Follow-up - 1 Week New Medications: Potassium Chloride ER (Potassium Chloride ER) 20 Meq Tab 20 MEQ PO DAILY Electrolyte Replacement #30 Ref 3 TAB Metoprolol Tartrate (Lopressor) 50 Mg Tab 50 MG PO Q12HR Blood Pressure Management #60 Ref 3 TAB Continued Medications: Clopidogrel (Plavix) 75 Mg Tab 75 MG PO DAILY Blood Clot Prevention #30 Ref 0 TAB Gabapentin (Gabapentin) 300 Mg Cap 300 MG PO TID #90 Ref 0 CAP Hydrochlorothiazide (Hydrochlorothiazide) 25 Mg Tab 25 MG PO BID #30 TAB ([Insulin]) ([Other Unk Meds]) Discontinued Medications: Metoprolol Tartrate (Metoprolol Tartrate) 25 Mg Tab 25 MG PO BID #60 Ref 0 TAB Jose E George MD Jun 13, 2016 08:47
[2016-06-13] MEDS ORDERED: METOPROLOL TARTRATE 50 MG TAB PO SCH (09:00)
--- NOTE | 2016-06-13 15:59 | EKG ---
Date Performed: 06/12/2016 Time Performed: 10:11:52 PTAGE: 66 years EKG: Sinus tachycardia Left ventricular hypertrophy Inferior/lateral ST-T changes are probably d ue to ventricular hypertrophy Abnormal ECG PREVIOUS TRACING : 06/12/2016 04.12 Since previous tracing, no significant change noted DOCTOR: Kilo Justice Interpretating Date/Time 06/13/2016 15:58:29
== END 2016-06-13 13:35 | disposition home or self-care (01) | DRG 305 ==
LOC: NEPD 18:34 → NEDA 06-12 01:16 → NEDH 06-12 08:25 → HCIS 06-12 09:33
PROVIDERS: ADMIT Hospitalist; ATTEND Hospitalist
DX: I16.1 Hypertensive emergency (principal); N17.9 Acute kidney failure, unspecified; M25.571 Pain in right ankle and joints of right foot; R74.8 Abnormal levels of other serum enzymes; E87.6 Hypokalemia; I11.9 Hypertensive heart disease without heart failure; E11.9 Type 2 diabetes mellitus without complications; Z86.73 Personal history of transient ischemic attack (TIA), and cerebral infarction without residual deficits; Z79.4 Long term (current) use of insulin; Z87.891 Personal history of nicotine dependence
CPT/HCPCS: 70450; 71010; 71275; 73610; 80048; 80053; 82550; 82552; 82948; 83036; 83735; 83880; 84484; 85025; 85027; 85610; 85730; 93005; 93306; 93970; 96365; 96366; 96375; J0360; J1644; J1815; J1956; J2405; J3480; J7050; Q9967